=== PATIENT | male | born 1965 | race Caucasian/White ===

== ENCOUNTER → 2019-10-25 08:15 | Outpatient (CLI) | payer OTHER, SELFPAY ==
[2019-10-25 08:12] VITALS: BMI 27.3
--- NOTE | 2019-10-25 08:16 | RAD_ITS ---
STUDY: X-RAY - LEFT WRIST REASON FOR EXAM: Male, 54 years old. INJURY WITH AN ANIMAL. PAIN RADIAL SIDE OF WRIST TECHNIQUE: 4 view(s) of the wrist were obtained including the scaphoid view. COMPARISON: None. FINDINGS: Normal visualized distal radius and ulna. Normal radiocarpal articulation. Normal distal radioulnar articulation. Normal carpal bones. Normal carpal articulations. Normal carpometacarpal articulation of the thumb. Normal second through fifth carpometacarpal articulations. Normal visualized metacarpal bones. The soft tissue structures are unremarkable. RAD/Wrist min 3 Views IMPRESSION: Normal x-ray examination of the wrist. Electronically Signed: Prem Shaw, at 9:00 EDT , Service support ,
== END ==
PROVIDERS: PCP Family Medicine; Referring Provider Orthopaedic Surgery; Visit Provider Orthopaedic Surgery
DX: S69.92XA Unspecified injury of left wrist, hand and finger(s), initial encounter (principal)
CPT/HCPCS: 73110

== ENCOUNTER → 2020-09-26 16:14 | Outpatient (CLI) | payer OTHER, SELFPAY ==
--- NOTE | 2020-09-26 16:17 | RAD_ITS ---
STUDY: X-RAY CHEST REASON FOR EXAM: Male, 55 years old. SOB TECHNIQUE: PA and lateral views of the chest. COMPARISON: None. FINDINGS: The lungs are clear and expanded. There is no demonstrated pleural abnormality. Normal size heart. Normal mediastinum and fabricio. Normal visualized pulmonary arteries. Normal visualized aortic arch and descending thoracic aorta. Normal visualized thoracic spine. Normal visualized ribs, clavicles, and shoulders. There is no demonstrated abnormality of the visualized soft tissue structures of the upper abdomen. RAD/Chest PA and Lateral IMPRESSION: Normal x-ray examination of the chest. Electronically Signed: Thai Carroll MD at 16:37 EDT Tel , Service support ,
== END ==
PROVIDERS: PCP Family Medicine; Referring Provider Physician Assistant Surgical; Visit Provider Physician Assistant Surgical
DX: J20.9 Acute bronchitis, unspecified (principal)
CPT/HCPCS: 71046

== ENCOUNTER → 2021-02-26 | Outpatient (CLI) | payer OTHER, SELFPAY | END | disposition home or self-care (01) | PROVIDERS: PCP Family Medicine; Referring Provider Physician Assistant Surgical; Visit Provider Physician Assistant Surgical | DX: Z11.52 Encounter for screening for COVID-19 (principal) | CPT/HCPCS: 87635; U0005; U0003 ==

== ENCOUNTER → 2021-06-06 | Outpatient (CLI) | payer OTHER, SELFPAY ==
[2021-06-06 18:02] LABS: Mucous, Urine 0 SEEN /hpf (<or=2+); Squamous Epithelial Cells - UA 0 SEEN /hpf (0-5)
[2021-06-06 18:10] LABS: Color, Urine Amber (Yellow); Glucose, Dipstick Normal (Normal); Ketone-Dipstick 5 mg/dl (Negative); Leukocyte Esterase-Dipstick 500 /ul (Negative); Nitrite-Dipstick Positive (Negative); Occult Blood-Urine 250 /ul (Negative); Protein-Dipstick 100 mg/dl (Negative); Specific Gravity, Urine 1.015 (1.002-1.030); Urine Clarity Sl. Cloudy (Clear); Urine Urobilinogen 1 mg/dl (Normal)
[2021-06-06 18:13] LABS: Urine Bilirubin Dipstick 1 mg/dL (Negative)
[2021-06-06 18:18] LABS: White Blood Cells >100 SEEN /hpf (0-5)
[2021-06-06 18:19] LABS: Bacteria RARE /hpf (None Seen); Red Blood Cells-Urine 25-50 SEEN /hpf (0-5)
== END | disposition home or self-care (01) ==
LOC: LABSPEC 18:02
PROVIDERS: PCP Family Medicine; Visit Provider Physician Assistant
DX: R30.9 Painful micturition, unspecified (principal)
CPT/HCPCS: 81001; 87086; 87088; 87186

== ENCOUNTER → 2021-06-18 14:44 | Outpatient (CLI) | payer OTHER, SELFPAY ==
--- NOTE | 2021-06-18 14:47 | US_ITS ---
STUDY: RENAL ULTRASOUND - COMPLETE REASON FOR EXAM: Male, 56 years old. UTI TECHNIQUE: Ultrasound evaluation of the kidneys was performed with real-time and static gray-scale imaging. COMPARISON: None. FINDINGS: RIGHT KIDNEY: Normal location of the right kidney, which is normal in size. There is a normal cortex of the right kidneytThere is no right renal mass or cyst. There are no right renal calculi. There is no right hydronephrosis. DISTAL RIGHT URETER: There is non-visualization of the distal right ureter. There is no demonstrated right ureterovesical junction calculus. There is a visualized right ureteral jet. LEFT KIDNEY: Normal location of the left kidney, which is normal in size. There is a normal cortex of the left kidney.. There is no left renal mass or cyst. There are no left renal calculi. There is no left hydronephrosis. DISTAL LEFT URETER: There is non-visualization of the distal left ureter. There is no demonstrated left ureterovesical junction calculus. There is a visualized left ureteral jet. BLADDER: The distended urinary bladder has a volume of 245 ml. The empty urinary bladder has a volume of 45 ml. There is a normal wall thickness of the distended urinary bladder. There is no demonstrated mass within the urinary bladder. There are no demonstrated bladder calculi. US/Kidney and Bladder IMPRESSION: Normal ultrasound of the kidneys and urinary bladder. Electronically Signed: Adrian Maciel MD (Brooks) at 15:48 EST , Service support ,
== END ==
PROVIDERS: Visit Provider Urology
DX: N39.0 Urinary tract infection, site not specified (principal)
CPT/HCPCS: 76770

== ENCOUNTER 2023-06-28 05:55 | Observation (INO) | payer OTHER, SELFPAY ==
--- NOTE | 2023-06-27 | APP_PTH ---
PATHOLOGY RESULTS PATIENT: SUSAN CHANG LOC: MS3 U#:[id number] AGE/SX: 58/M ROOM: IN315 RE06/28/[address]: Dr. Nenita Sheppard MD : 1965 BED: 1 DIS: 06/28/2023 SPEC #: [id number] RECD: 06/30/23 08:14 STATUS: TERI MARIANNA #: [id number] SIVA: 06/27/23 00:[address]: Nenita Sheppard DEPT: SURGICAL PATHOLOGY RECD BY: Apolonia Marrero ENTERED: 06/30/23 08:14 SP TYPE: APPENDIX OTHR DR: No Primary Care Phys Tissues: Appendix, NOS Procedures: Surgery Specimen Level III HEADER OPERATION: Laparoscopic appendectomy PRE-OP DIAGNOSIS: Acute appendicitis TISSUE SUBMITTED: Appendix MICROSCOPIC DIAGNOSIS Appendix, appendectomy: Acute appendicitis and periappendicitis. YULY:omar 07/01/2023 MICROSCOPIC DESCRIPTION Slides are reviewed. GROSS DESCRIPTION Received in fixative is one container labeled with the patient's name and designated appendix. The specimen consists of an appendix measuring 9.0 cm in length and up to 1.5 cm in diameter. The attached periappendiceal adipose tissue measures up to 2.0 cm in width. The serosa is congested. No obvious perforation is identified. The lumen is dilated and filled with fecal material. No fecalith is identified. Special Education Superintendent sections are submitted in two cassettes. / SJ:omar 06/30/2023 TC:2 CPT: 60638
[2023-06-28] VITALS (14 sets, daily range): BP systolic 115–150; BP diastolic 66–102; PULSE 66–110; RESP 16–18; TEMP 36.1–36.9; O2SAT 81–100; BMI 31.9
--- NOTE | 2023-06-28 06:20 | CT_ITS ---
INDICATION: abd pain EXAMINATION: CT Abdomen And Pelvis W/ Contrast Injection TECHNIQUE: Helically acquired images were obtained of the abdomen and pelvis with sagittal and coronal reconstructed images. Individualized dose optimization techniques were used for this CT. IV contrast dosage and agent: 100 mL of Isovue-370. Oral contrast: None. COMPARISON: None. FINDINGS: VESSELS: No abdominal aortic aneurysm or dissection. LIVER: No evidence of a mass. No intrahepatic or extrahepatic biliary duct dilation. GALLBLADDER: No calcified stones. No evidence of cholecystitis. PANCREAS: No focal solid or cystic mass. No evidence of pancreatitis. SPLEEN: Normal. ADRENAL GLANDS: Normal. KIDNEYS AND URETERS: No urinary tract stone. No hydronephrosis or hydroureter. No significant asymmetric perinephric stranding. URINARY BLADDER: Unremarkable. BOWEL: Diverticulosis with no evidence of diverticulitis. The appendix is dilated and fluid-filled measuring 1.4 cm in diameter with mild periappendiceal fat stranding. There are proximal and distal appendicoliths. No evidence of perforation. No evidence of bowel obstruction. REPRODUCTIVE ORGANS: No evidence of a pelvic mass. PERITONEUM: No intraabdominal free fluid or free air. LYMPH NODES: No pathologically enlarged mesenteric or retroperitoneal lymph nodes. ABDOMINAL WALL: Small fat-containing umbilical hernia. BONES: No acute abnormality. LOWER CHEST: Visualized lung bases are unremarkable. CT/Abdomen/Pelvis W IV Cont ONLY IMPRESSION: Acute appendicitis. Electronically Signed: Chacho Henao DO at 7:44 EST ,
[2023-06-28] MEDS: Ondansetron 4 MG/2 ML Vial IV (06:25)
[2023-06-28] MEDS: Morphine 4 MG/ML Syringe IV (06:26)
[2023-06-28 06:30] LABS: Absolute Lymphocyte Count 1.06 X10^3/uL (0.83-4.51); Absolute Neutrophil Count 8.8 X10^3/uL (2.0-7.7); Basophil# 0.03 X10^3/uL; Basophil% 0.3 % (0-1); Eosinophil# 0.02 X10^3/uL; Eosinophils% 0.2 % (0-5); Hematocrit 43.5 % (40-54); Hemoglobin 15.6 g/dL (13.0-16.5); Lymphocyte # 1.06 X10^3/ul (0.83-4.51); Lymphocyte % 10.2 % (19-41); Mean Corp Hgb Conc 35.9 g/dL (32-36); Mean Corpuscular Hgb 30.5 pg (27.0-32.0); Mean Platelet Vol. 8.7 fl (6.2-12.0); Monocyte# 0.48 X10^3/uL; Monocyte% 4.6 % (0-10); NRBC Flagged by Analyzer 0 % (0-5); Neutrophil # 8.77 X10^3/uL (2.7-7.7); Neutrophil % 84.2 % (47-70); Platelet Count 383 K/mm3 (150-450); RBC Distribution Width CV 12.1 % (11.6-14.6); RBC Distribution Width SD 37.3 fl (35.1-43.9); Red Blood Count 5.12 M/mm3 (4.6-6.2); White Blood Count 10.4 K/mm3 (4.4-11.0)
[2023-06-28] MEDS: HYDROmorphone 1 MG/ML Syringe IV (06:43)
[2023-06-28] MEDS: Ketorolac 30 MG/ML Syringe IV (06:43)
[2023-06-28 06:47] LABS: ALB/GLOB Ratio 1.2 RATIO (0.9-2.4); AST(SGOT) 27 U/L (15-37); Alanine Aminotransfer ALT/SGPT 36 U/L (16-61); Albumin, Serum 4.3 g/dL (3.2-5.0); Alkaline Phosphatase 65 U/L (45-117); Anion Gap 9 (5-15); BUN 28 mg/dL (7-18); BUN/Creat Ratio 19.9 RATIO (10-20); Calcium,Total 10.1 mg/dL (8.5-10.1); Chloride 102 mmol/L (98-107); Creatinine, Serum 1.41 mg/dL (0.70-1.30); EST Glomerular Filtration Rate 55 mL/min (>60); Est Glom Filt Rate - Afr Amer 67 mL/min (>60); Estimated Creatinine Clearance 55.92 ml/min; Globulin 3.6 g/dL (2.2-4.2); Glucose 168 mg/dL (74-106); Potassium 4.3 mmol/L (3.5-5.1); Protein, Total 7.9 g/dL (6.4-8.2); Sodium Level 135 mmol/L (136-145)
[2023-06-28] MEDS: 0.9% Normal Saline (1000mL) 1,000 ML 999 ML IV (06:49)
[2023-06-28 07:07] LABS: Lipase 45 U/L (13-75)
--- OUTSIDE RECORDS SUMMARY | 2023-06-28 07:09 | XMS RPT_ITS | CCD ---
Author Name Unknown Address [address] [place] [address] Organization [facility] Care Team Providers Care Core Driller Helper Name Role Phone Linda Palmer Unavailable Unavailable Linda Palmer Unavailable Unavailable Medications Completed/Discontinued Medications Medication Drug Class(es) Dates Sig (Normalized) Sig (Original) azithromycin 250 mg oral tablet (2 sources) Macrolide Antimicrobial Start: 01-01-2017 ZITHROMAX Z-ALEXANDRA 250 MG TABS Per package instructions AZITHROMYCIN [id number] Dutch HERRERA Problems Problem Classification Problem Date Documented Da te Episodic/Chronic Other connective tissue disease (3 sources) Unspecified disorder of synovium, tendon, and bursa; Translations: [Lateral epicondylitis, unspecified elbow] Onset: 07-04-2014 07-06-2014 Episodic Other connective tissue disease (1 source) Lateral epicondylitis, unspecified elbow; Translations: [Lateral epicondylitis, unspecified elbow] Onset: 07-04-2014 07-06-2014 Episodic Other non-traumatic joint disorders (5 sources) Pain in elbow; Translations: [Hip pain] Onset: 06-28-2013 01-11-2015 Episodic Other non-traumatic joint disorders (1 source) Hip pain; Translations: [Pain in left hip] Onset: 06-28-2013 06-28-2013 Episodic Other upper respiratory infections (2 sources) Acute sinusitis; Translations: [Acute sinusitis, unspecified] Onset: 01-01-2017 01-01-2017 Episodic Sprains and strains (2 sources) Strain of muscle of lower limb; Translations: [Strain of muscle, fascia and tendon of left hip] Onset: 06-28-2013 06-28-2013 Episodic Results Test Name Value Interpretation Reference Range Facil ity Vital Signs Date Time Vital Sign Value Performing Clinician Facility 01-01-2017 08:34-0400 BMI (Body Mass Index) 30.54 kg/m2 [facility] 01-01-2017 08:34-0400 Body Temperature 98.4 [degF] [facility] 01-01-2017 08:34-0400 BP Diastolic 62 mm[Hg] [facility] 01-01-2017 08:34-0400 BP Systolic 132 mm[Hg] [facility] 01-01-2017 08:34-0400 Height 175.26 cm [facility] 01-01-2017 08:34-0400 Pulse (Heart Rate) 62 /min [facility] 01-01-2017 08:34-0400 Respiratory Rate 16 /min [facility] 01-01-2017 08:34-0400 Weight 93.8 kg [facility] r[facility] Medicine Procedures Date Procedure Procedure Detail Performing Clinician Start: 07-04-2014 End: 07-06-2014 Drain/inject, joint/bursa Shon Landaverde Work Phone: Plan of Treatment Date Care Activity Detail Author Start: 01-01-2017 End: 01-01-2017 Appointment Appointment [facility] Start: 01-11-2015 End: 01-19-2015 Drain/inject, joint/bursa Arthrocentesis, aspiration/injection; intermediate joint wrist, elbow ankle [facility] Start: 01-11-2015 End: 01-19-2015 Office/outpatient visit, est, level 4 [id number] Ofc Vst, Est Level IV [facility] Start: 01-11-2015 End: 01-11-2015 X-ray exam of elbow X-Ray, Elbow [facility] Start: 07-04-2014 End: 07-04-2014 X-ray exam of elbow X-Ray, Elbow [facility] Patient Education SINUSITIS [facility] Additional Source Comments FOR RECORDS PERTAINING TO PATIENTS WHO ARE OR HAVE BEEN ENROLLED IN A CHEMICAL DEPENDENCY/SUBSTANCEABUSE PROGRAM, SOME INFORMATION MAY BE OMITTED. This clinical summary was aggregated from multiple sources. Caution should be exercised in using it in the provision of clinical care. This summary normalizes information from multiple sources, and as a consequence, information in this document may materially change the coding, format and clinical context of patient data. In addition, data may be omitted in some cases. CLINICAL DECISIONS SHOULD BE BASED ON THE PRIMARY CLINICAL RECORDS. [facility] [employer] [facility]. provides no warranty or guarantee of the accuracy or completeness of information in this document.
--- NOTE | 2023-06-28 08:00 | EX.ED.DYSGE1 ---
HPI History of Present Illness Chief Complaint: Abd Pain Informant: patient and spouse/S.O. Narrative Narrative: Patient is a 58-year-old male with no significant past medical history. He states that after getting done with work yesterday that he noticed some vague abdominal discomfort. He states that it slightly worsened after returning home from a game but he was able to eat and go to bed. He states he woke around 1 in the morning with generalized lower abdominal pain and bouts of vomiting. He states that the pain has been persistent and slowly growing in severity ever since that time and therefore he comes in for evaluation [facility] Medical History Urinary tract infection with hematuria Allergy/AdvReac Type Severity Reaction Status Date / Time Penicillins Allergy Severe unknown Verified 06/28/23 05:57 Surgical History (Updated 06/28/23 @ 06:29 by Anderson Joseph) History of carpal tunnel surgery History of hernia repair Social History Smoking Status: Never smoker alcohol intake: current alcohol intake frequency: a few times a week Alcohol type: hard liquor ROS ROS ED Constitutional Constitutional ED: Denies chills or fever(s) ENT ENT ED: Denies sore throat Cardiovascular Cardiovascular: Denies chest pain Respiratory/Chest Respiratory/Chest: Denies cough or dyspnea Gastrointestinal Gastrointestinal: Reports abdominal pain, nausea and vomiting; Denies diarrhea Genitourinary Genitourinary ED: Denies dysuria Musculoskeletal Musculoskeletal: Denies back pain or myalgias Integumentary Denies rash Neurologic Neurologic: Denies headache(s) Hematologic/Lymphatic Hematologic/Lymphatic: Denies easy bleeding or easy bruising EXAM Physical Exam Const Vital Signs: 06/28/23 05:57 06/28/23 06:25 06/28/23 07:24 Temperature 97 F L Temperature Source Temporal Pulse Rate 110 H Respiratory Rate 17 Blood Pressure 115/102 H Blood Pressure Mean 106 Pulse Ox 98 81 Oxygen Delivery Method Room Air Room Air Oxygen Flow Rate (L/min) 06/28/23 07:25 06/28/23 07:27 Temperature Temperature Source Pulse Rate Respiratory Rate Blood Pressure Blood Pressure Mean Pulse Ox 100 Oxygen Delivery Method Nasal Cannula Nasal Cannula Oxygen Flow Rate (L/min) 3 3 Positive well nourished and well developed General Appearance ED: well developed; Negative for pallor HEENT Reports moist mucous membranes HEENT Narrative: No signs of infection noted in the posterior pharynx Eyes PERRL and EOMs intact bilaterally General Eye ED: Negative for scleral icterus Neck supple Neck Narrative: No nuchal rigidity or meningeal signs Resp normal respiratory effort and clear to auscultation bilaterally Cardio regular rhythm Rate: tachycardic and other Other Details: Tachycardic rate with regular rhythm No murmurs rubs or gallops Radial and carotid pulses are equal and symmetric GI non-distended GI Narrative: Abdomen is nondistended with normal active bowel sounds There is pain with palpation across the lower abdomen diffusely but this seems to be greatest in the suprapubic and left lower quadrant with voluntary guarding Auscultation: normoactive bowel sounds Back/Spine no CVA tenderness Extremity normal to inspection Neuro oriented x3, CN's II-XII intact bilaterally and no sensory deficits noted Sensorium / Orientation: alert Motor Exam: strength 5/5 throughout Psych mental status grossly normal Skin no rashes or lesions noted General Skin Exam: Negative for jaundice or pallor MDM MDM MDM Narrative Medical decision making narrative: Patient presented to the ER hypertensive and tachycardic but is in a great amount of pain and this is most likely a physiologic response. He reported generalized abdominal discomfort worsening throughout the evening and is having bouts of nausea and vomiting. Differential diagnosis is for kidney stone versus acute appendicitis versus biliary colic versus pancreatitis versus bowel obstruction as he does have a history of inguinal hernia surgery. Basic labs were obtained which revealed no clinically significant findings. CT scan showed a dilated and inflamed appendix without perforation with appendicaliths. He does have a penicillin allergy so therefore he was started on Cipro and Flagyl. General surgery was contacted and they will accept the patient and plan on taking with surgery later today. Secondary to this a chest x-ray and EKG were obtained. Plan of care was cussed with patient and and they are both agreeable to it. Therefore patient be admitted to the general surgery service for planed appendectomy later today History & Record Review Discussion w/independent historian: Patient and Significant other Lab Data Attestation: I reviewed the patient's lab results. Labs: Laboratory Results - last 24 hr 06/28/23 06/28/23 06:11 06:27 WBC 10.4 RBC 5.12 Hgb 15.6 Hct 43.5 MCV 85.0 MCH 30.5 MCHC 35.9 RDW Std Deviation 37.3 RDW Coeff of Michelle 12.1 Plt Count 383 MPV 8.7 Immature Gran % (Auto) 0.500 Neut % (Auto) 84.2 H Lymph % (Auto) 10.2 L Florence % (Auto) 4.6 Eos % (Auto) 0.2 Baso % (Auto) 0.3 Absolute Neuts (auto) 8.8 H Absolute Lymphs (auto) 1.06 Nucleated RBC % 0 Sodium 135 L Potassium 4.3 Chloride 102 Carbon Dioxide 24.0 Anion Gap 9 BUN 28 H Creatinine 1.41 H Estim Creat Clear Calc 55.92 Est GFR (MDRD) Af Amer 67 Est GFR (MDRD) Non-Af 55 L BUN/Creatinine Ratio 19.9 Glucose 168 H Calcium 10.1 Total Bilirubin 0.60 AST 27 ALT 36 Alkaline Phosphatase 65 Total Protein 7.9 Albumin 4.3 Globulin 3.6 Albumin/Globulin Ratio 1.2 Lipase 45 Radiography Diagnostic Testing: Clinical Impression(s) from Imaging Studies Abdomen/Pelvis CT 06/28/23 06:20 IMPRESSION: Acute appendicitis. Electronically Signed: Chacho Henao DO at 7:44 EST , 1 view chest x-ray as interpreted by the emergency medicine physician reveals no acute infiltrate pneumothorax or pleural effusion Discharge Plan Dx/Rx/DC Orders Clinical Impression: Acute appendicitis Disposition Disposition: [facility]
--- NOTE | 2023-06-28 08:03 | EKG12_ITS ---
Test Reason : ABD PAIN Blood Pressure : / mmHG Vent. Rate : 070 BPM Atrial Rate : 070 BPM P-R Int : 200 ms QRS Dur : 100 ms QT Int : 398 ms P-R-T Axes : 058 015 026 degrees QTc Int : 429 ms Normal sinus rhythm Normal ECG Confirmed by KATIE ANGUIANO, DANIEL ([id number]), subeditor AALIYAH MORALES ([id number]) on 06/30/2023 8:38:27 AM Referred By: Confirmed By:DANIEL WILSON MD
--- NOTE | 2023-06-28 08:10 | RAD_ITS ---
STUDY: X-RAY CHEST REASON FOR EXAM: Male, 58 years old. Preop clearance TECHNIQUE: Single AP portable view of the chest. COMPARISON: September 26, 2020 FINDINGS: The lungs are clear and expanded. There is no demonstrated pleural abnormality. Normal size heart. Normal mediastinum and fabricio. Normal visualized pulmonary arteries. Normal visualized aortic arch and descending thoracic aorta. There are diffuse degenerative changes of the visualized thoracic spine. Normal visualized ribs, clavicles, and shoulders. There is no demonstrated abnormality of the visualized soft tissue structures of the upper abdomen. RAD/Chest 1 View (Portable) IMPRESSION: Degenerative changes, as described above. No demonstrated acute cardiopulmonary process. Electronically Signed: Miguel Silva MD at 9:04 [facility] ,
--- OUTSIDE RECORDS SUMMARY | 2023-06-28 08:15 | XMS RPT_ITS | CCD ---
Author Name Unknown Address [address] [place] [address] Organization [facility] Care Team Providers Care Manager Supply Name Role Phone Linda Palmer Unavailable Unavailable Linda Palmer Unavailable Unavailable Medications Completed/Discontinued Medications Medication Drug Class(es) Dates Sig (Normalized) Sig (Original) azithromycin 250 mg oral tablet (2 sources) Macrolide Antimicrobial Start: 01-01-2017 ZITHROMAX Z-ALEXANDRA 250 MG TABS Per package instructions AZITHROMYCIN [id number] Dutch HERRERA Problems Problem Classification Problem Date [...] 08:34-0400 BMI (Body Mass Index) 30.54 kg/m2 [facility] 01-01-2017 08:34-0400 Body Temperature 98.4 [degF] [facility] 01-01-2017 08:34-0400 BP Diastolic 62 mm[Hg] [facility] 01-01-2017 08:34-0400 BP Systolic 132 mm[Hg] [facility] 01-01-2017 08:34-0400 Height 175.26 cm [facility] 01-01-2017 08:34-0400 Pulse (Heart Rate) 62 /min [facility]ternal Medicine 01-01-2017 08:34-0400 Respiratory Rate 16 /min [facility] 01-01-2017 08:34-0400 Weight 93.8 kg [facility] rnal Medicine Procedures Date Procedure Procedure Detail Performing Clinician Start: 07-04-2014 End: 07-06-2014 Drain/inject, joint/bursa Shon Landaverde Work Phone: Plan of Treatment Date Care Activity Detail Author Start: 01-01-2017 End: 01-01-2017 Appointment Appointment [facility] Start: 01-11-2015 End: 01-19-2015 Drain/inject, joint/bursa Arthrocentesis, aspiration/injection; intermediate joint wrist, elbow ankle [facility] Start: 01-11-2015 End: 01-19-2015 Office/outpatient visit, est, level 4 [id number] Ofc Vst, Est Level IV [facility] Start: 01-11-2015 End: 01-11-2015 X-ray exam of elbow X-Ray, Elbow [facility] Start: 07-04-2014 End: 07-04-2014 X-ray exam of elbow X-Ray, Elbow [facility] Patient Education SINUSITIS [facility] Additional Source Comments FOR RECORDS [...] BE BASED ON THE PRIMARY CLINICAL RECORDS. [facility] [employer] [facility]. provides no warranty or guarantee of the accuracy or completeness of information in this document.
--- NOTE | 2023-06-28 08:29 | NURSING ---
OR [facility] OBS ACUTE APPENDICITIS
[2023-06-28] MEDS: Ciprofloxacin 400 MG/200 ML BAG 200 MG IV (08:38)
[2023-06-28] MEDS: HYDROmorphone 0.5 MG/0.5 ML SYRINGE IV (08:41)
[2023-06-28 08:49] LABS: Bacteria 0 SEEN /hpf (None Seen); Mucous, Urine 0 SEEN /hpf (<or=2+); Red Blood Cells-Urine 0 SEEN /hpf (0-5); Squamous Epithelial Cells - UA 0 SEEN /hpf (0-5); White Blood Cells 0 SEEN /hpf (0-5)
[2023-06-28 09:00] LABS: Color, Urine Yellow (Yellow); Glucose, Dipstick Normal (Normal); Ketone-Dipstick 15 mg/dl (Negative); Leukocyte Esterase-Dipstick Negative /ul (Negative); Nitrite-Dipstick Negative (Negative); Occult Blood-Urine Negative /ul (Negative); Protein-Dipstick 15 mg/dl (Negative); Specific Gravity, Urine 1.015 (1.002-1.030); Urine Bilirubin Dipstick Negative (Negative); Urine Clarity Clear (Clear); Urine Urobilinogen Normal (Normal)
[2023-06-28] MEDS: metroNIDAZOLE 500 MG/100 ML BAG 100 MG IV (09:57)
[2023-06-28] MEDS: Lactated Ringers 1,000 ML 15 ML IV (10:04)
--- NOTE | 2023-06-28 10:04 | PCM.HP.STD ---
HPI - General General Date of Admission: 06/28/23 HPI Narrative SUSAN CHANG, is a 58 M who presents the ER due to abdominal pain nausea and vomiting. Patient was found to have acute appendectomy on CT. Patient states the pain got worse at 1 AM this morning had minimal pain yesterday. Patient states at 1 AM the pain was diffuse in his abdomen. Patient patient white blood count of 10.4 with a left shift. Patient was given IV as Cipro and Flagyl in the ER for acute appendicitis. Patient's only surgery is open right inguinal hernia. patient takes no daily medication. [facility] Medical History Urinary tract infection with hematuria Allergy/AdvReac Type Severity Reaction Status Date / Time Penicillins Allergy Severe unknown Verified 06/28/23 05:57 Surgical History (Updated 06/28/23 @ 06:29 by Anderson Joseph) History of carpal tunnel surgery History of hernia repair Social History Smoking Status: Never smoker alcohol intake: current alcohol intake frequency: a few times a week Alcohol type: hard liquor Vital Signs Vital Signs Vital Signs: 06/28/23 05:57 06/28/23 06:25 06/28/23 07:24 Temperature 97 F L Temperature Source Temporal Pulse Rate 110 H Respiratory Rate 17 Blood Pressure 115/102 H Blood Pressure Mean 106 Pulse Ox 98 81 Oxygen Delivery Method Room Air Room Air Oxygen Flow Rate (L/min) 06/28/23 07:25 06/28/23 07:27 06/28/23 08:55 Temperature 97.9 F Temperature Source Oral Pulse Rate 72 Respiratory Rate 16 Blood Pressure 145/87 H Blood Pressure Mean 106 Pulse Ox 100 99 Oxygen Delivery Method Nasal Cannula Nasal Cannula Room Air Oxygen Flow Rate (L/min) 3 3 06/28/23 09:39 Temperature 97.9 F Temperature Source Pulse Rate 72 Respiratory Rate 16 Blood Pressure 145/87 H Blood Pressure Mean 106 Pulse Ox 99 Oxygen Delivery Method Oxygen Flow Rate (L/min) Weight Weight: 210 lb Body Mass Index (BMI) 31.9 Physical Exam Const alert, oriented x3 and no apparent distress HEENT normocephalic and head/scalp atraumatic Resp normal respiratory effort Cardio regular rate GI soft to palpation; Negative for non-distended Palpation: tender RLQ; Negative for guarding Extremity no clubbing, cyanosis or edema Neuro CN's II-XII intact bilaterally Psych mental status grossly normal Results Lab / Micro Data 06/28/23 06:11 06/28/23 06:11 Labs: Laboratory Results - last 24 hr 06/28/23 06:11: WBC 10.4, RBC 5.12, Hgb 15.6, Hct 43.5, MCV 85.0, MCH 30.5, MCHC 35.9, RDW Std Deviation 37.3, RDW Coeff of Michelle 12.1, Plt Count 383, MPV 8.7, Immature Gran % (Auto) 0.500, Neut % (Auto) 84.2 H, Lymph % (Auto) 10.2 L, [place] % (Auto) 4.6, Eos % (Auto) 0.2, Baso % (Auto) 0.3, Absolute Neuts (auto) 8.8 H, Absolute Lymphs (auto) 1.06, Nucleated RBC % 0, Sodium 135 L, Potassium 4.3, Chloride 102, Carbon Dioxide 24.0, Anion Gap 9, BUN 28 H, Creatinine 1.41 H, Estim Creat Clear Calc 55.92, Est GFR (MDRD) Af Amer 67, Est GFR (MDRD) Non-Af 55 L, BUN/Creatinine Ratio 19.9, Glucose 168 H, Calcium 10.1, Total Bilirubin 0.60, AST 27, ALT 36, Alkaline Phosphatase 65, Total Protein 7.9, Albumin 4.3, Globulin 3.6, Albumin/Globulin Ratio 1.2 06/28/23 06:27: Lipase 45 06/28/23 08:43: Urine Color Yellow, Urine Clarity Clear, Urine pH 7.0, Ur Specific [place] 1.015, Urine Protein 15 H, Urine Glucose (UA) Normal, Urine Ketones 15 H, Urine Occult Blood Negative, Urine Nitrite Negative, Urine Bilirubin Negative, Urine Urobilinogen Normal, Ur Leukocyte Esterase Negative, Urine RBC 0 SEEN, Urine WBC 0 SEEN, Ur Squamous Epith Cells 0 SEEN, Urine Bacteria 0 SEEN, Urine Mucus 0 SEEN Imagaing Radiology Impression Abdomen/Pelvis CT 06/28/23 06:20 IMPRESSION: Acute appendicitis. Electronically Signed: Chacho Henao DO at 7:44 EST , Chest X-Ray 06/28/23 08:10 IMPRESSION: Degenerative changes, as described above. No demonstrated acute cardiopulmonary process. Electronically Signed: Miguel Silva MD at 9:04 EST , Assessment & Plan Assessment/Plan (1) Acute appendicitis: PLAN: Plan 1. Discussed procedure laparoscopic appendectomy, possible open along with the risk but not limited to bleeding, infection/abscess, injury to another organ (small bowel, colon, etc.), adhesion, hernia at incision sites, and anesthesia. Patient and his have no further questions at this time. Nenita Sheppard M.D. Pager: [phone] [facility] [address] [place] [address], [address] [place] [address] Office: [phone]
[2023-06-28] MEDS: Bupivacaine 0.5% PF 10 ML VIAL (11:35)
--- NOTE | 2023-06-28 11:37 | PCM.OPRPT ---
Report of Operation Date of Procedure: 06/28/23 Pre-Operative Diagnosis: Acute appendicitis Post-Operative Diagnosis: Same Surgery/Procedure Performed:: Laparoscopic appendectomy Surgeon: Nenita Sheppard Type of Anesthesia: General/Supplemental Anesthesiologist: Isaias Orr Special Medications: Cipro 400 mg IV x 1 and Flagyl 500 mg IV x 1 in the ER for acute appendicitis Specimen's removed: Appendix Estimated Blood Loss (mL): < 10 cc Description of Procedure: Indications: 58-year-old male presented to the ER with increased abdominal pain at 1 AM. On workup he was found to have acute appendicitis on CT and a white blood cell count of 10.4 with a left shift. Patient was started on antibiotics in the ER for acute appendicitis-Cipro 400 mg IV x 1, Flagyl 500 mg IV x 1 Description of the procedure: The patient was placed on operating table in supine position. General anesthesia was induced. A timeout was completed verifying correct patient, procedure, position and special equipment prior to beginning procedure. Abdomen was prepped and draped in usual sterile fashion. Incision was made in the natural skin line above the umbilicus with a 15 blade scalpel. The fascia was elevated and incised. Entry into the peritoneum was confirmed visually and no bowel was noted in the vicinity of the incision. The [place] trocar was placed under direct vision. Abdomen insufflated with a pressure of 12-15 mmHg. Patient tolerated insertion well. The scope was inserted and the abdomen inspected. No injuries from initial trocar placement were noted. Minimal amount of fluid was seen in the right lower quadrant. An direct visualization 2 -5 mm trocars were placed one above the symphysis pubis and below the hairline and one in the left lower quadrant lateral to the rectus muscle. Care is taken to avoid injury to the bladder and inferior epigastric vessels. The table was placed in Trendelenburg position with the right side elevated. The appendix was grasped with atraumatic grasper and elevated. It was noted to be inflamed/dilated. A window was developed in the mesoappendix at the point between the base of the appendix and the cecum. An endoscopic 45 mm linear cutting stapler blue load was then used to divide and staple the base of the appendix. Enseal was used to divide the mesoappendix. The appendix was withdrawn into the [place] trocar after being placed endoscopically retrieval bag. Appendix was sent to pathology. The appendiceal stump was then irrigated and hemostasis was assured. Fluid was suctioned no other pathology was identified. Secondary trochars were removed under direct visualization. No bleeding was noted trocar sites. The laparoscope withdrawn and the umbilical trocar removed. The abdomen was allowed to collapse. Local anesthesia of 30 mL of 0.5% Marcaine was used at the incision sites. The umbilical trocar site was closed with the [id number] 0 Vicryl suture. The skin was closed using sutures of 4-0 Monocryl and Steri-Strips. The patient was extubated. The patient tolerated the procedure well and was taken to the postanesthesia care unit in satisfactory condition. Complications none
--- NOTE | 2023-06-28 11:39 | DCINST_ITS ---
Discharge Instructions Diet Discharge Diet: Light diet - advance as tolerated Activity Discharge Activity: May Not Drive (while taking narcotic pain medications.) May shower in (days): 1 Lifting Restrictions: no lifting >20 lbs x 2 wks, no strenuous exercise for 4 wks Dressing / Incision Call your doctor if your incision/area has: Continuous Slow Oozing, Sudden Increased Bleeding, Increased Pain/ Swelling, Increased Redness, Foul Smelling Discharge and Swelling at the incision site Call your doctor if you observe: Fever of 101 or Higher Remove Dressing in: 2 days Cleanse incision/area with: Soap & Water Additional Dressing/Incision Instructions:: Steri-Strips will fall off in 7 to 10 days, if they do not fall off okay to remove after 10 days. Follow Up Care Please Follow Up With: Nenita Sheppard MD When: Call the office for a follow-up appointment 2 weeks; after 5 PM and on the weekends call [phone] with any concerns. Test Results: Test results from this visit will be discussed in further detail at your follow- up appointment, if applicable. Discharge Plan Admission Admit Date/Time: 06/28/23 08:13 Attending Provider: Nenita Sheppard Primary Care Provider: Marcy PhysicianHilary Primary Discharge Orders/Prescriptions Prescriptions: New tramadol 50 mg tablet 50 mg PO Q6H PRN (Reason: pain) Qty: 14 0RF Referrals / Follow Up: Care PhysicianHilary Primary [Primary Care Provider] - Disposition Disposition (needs filled in before D/C Order can be placed): Home, Self Care
[2023-06-28] MEDS: 0.9% Normal Saline (1000mL) 1,000 ML 120 ML IV (13:24)
[2023-06-28] MEDS: traMADol 50 MG Tablet PO (15:12)
--- OUTSIDE RECORDS SUMMARY | 2023-07-01 11:22 | XMS RPT_ITS | CCD ---
Author Name Unknown Address [address] [place] [address] Organization [facility] Care Team Providers Care Manufacturing Production Technician Name Role Phone Linda Palmer Unavailable Unavailable Linda Palmer Unavailable Unavailable Medications Completed/Discontinued Medications Medication Drug Class(es) Dates Sig (Normalized) Sig (Original) azithromycin 250 mg oral tablet (2 sources) Macrolide Antimicrobial Start: 01-01-2017 ZITHROMAX Z-ALEXANDRA 250 MG TABS Per package instructions AZITHROMYCIN [id number] Dutch HERRERA Problems Problem Classification Problem Date [...] 08:34-0400 BMI (Body Mass Index) 30.54 kg/m2 [facility] Internal [facility] 01-01-2017 08:34-0400 Body Temperature 98.4 [degF] [facility] 01-01-2017 08:34-0400 BP Diastolic 62 mm[Hg] [facility] 01-01-2017 08:34-0400 BP Systolic 132 mm[Hg] [facility] 01-01-2017 08:34-0400 Height 175.26 cm [facility] 01-01-2017 08:34-0400 Pulse (Heart Rate) 62 /min [facility] I nternal Medicine 01-01-2017 08:34-0400 Respiratory Rate 16 /min [facility]al Medicine 01-01-2017 08:34-0400 Weight 93.8 kg [facility] rnal Medicine Procedures Date Procedure Procedure Detail Performing Clinician Start: 07-04-2014 End: 07-06-2014 Drain/inject, joint/bursa Shon Landaverde Work Phone: Plan of Treatment Date Care Activity Detail Author Start: 01-01-2017 End: 01-01-2017 Appointment Appointment [facility] Start: 01-11-2015 End: 01-19-2015 Drain/inject, joint/bursa Arthrocentesis, aspiration/injection; intermediate joint wrist, elbow ankle [facility] Start: 01-11-2015 End: 01-19-2015 Office/outpatient visit, est, level 4 [id number] Ofc Vst, Est Level IV [facility] Start: 01-11-2015 End: 01-11-2015 X-ray exam of elbow X-Ray, Elbow [facility] Start: 07-04-2014 End: 07-04-2014 X-ray exam of elbow X-Ray, Elbow [facility] Patient Education SINUSITIS [facility] Internal Medicine Additional Source Comments FOR RECORDS [...] BE BASED ON THE PRIMARY CLINICAL RECORDS. [facility] [employer] [facility]. provides no warranty or guarantee of the accuracy or completeness of information in this document.
== END 2023-06-28 18:18 | disposition home or self-care (01) ==
LOC: ED 07:06 → MS3 08:14 → ACINP 08:56 → MS3 18:03 → ACINP 07-01 10:13
PROVIDERS: Admitting Provider Surgery; Emergency Provider Emergency Medicine; Visit Provider Surgery
PROC: 0DTJ4ZZ Resection of Appendix, Percutaneous Endoscopic Approach (ICD-10-PCS; CPT 44970; principal; 2023-06-28 10:30)
DX: K35.80 Unspecified acute appendicitis (principal)
CPT/HCPCS: 44970; 00840; 71045; 74177; 80053; 81001; 83690; 85025; 88304; 93005; 94668; 96361; 96374; 96375; 96376; 99283; J7030; J7040; J7050; J7120; Q9967; A4216; C1760; J2405

== ENCOUNTER → 2023-08-22 | Outpatient (CLI) | payer OTHER, SELFPAY ==
--- OUTSIDE RECORDS SUMMARY | 2023-08-22 18:27 | XMS RPT_ITS | CCD ---
Author Name Unknown Address [address] [place] [address] Organization [facility] Care Team Providers Care Supervisor Furnace Process Name Role Phone Linda Palmer Unavailable Unavailable Linda Palmer Unavailable Unavailable Medications Completed/Discontinued Medications Medication Drug Class(es) Dates Sig (Normalized) Sig (Original) azithromycin 250 mg oral tablet (2 sources) Macrolide Antimicrobial Start: 01-01-2017 ZITHROMAX Z-ALEXANDRA 250 MG TABS Per package instructions AZITHROMYCIN [id number] [place] HERRERA Problems Problem Classification Problem Date [...] 08:34-0400 BMI (Body Mass Index) 30.54 kg/m2 [facility] 01-01-2017 08:34-0400 Body Temperature 98.4 [degF] [facility] 01-01-2017 08:34-0400 BP Diastolic 62 mm[Hg] [facility]nal Medicine 01-01-2017 08:34-0400 BP Systolic 132 mm[Hg] [facility] 01-01-2017 08:34-0400 Height 175.26 cm [facility]nal [facility] 01-01-2017 08:34-0400 Pulse (Heart Rate) 62 /min [facility] I nternal Medicine 01-01-2017 08:34-0400 Respiratory Rate 16 /min [facility] Int ernal Medicine 01-01-2017 08:34-[address] [facility] rnal Medicine Procedures Date Procedure Procedure Detail Performing Clinician Start: 07-04-2014 End: 07-06-2014 Drain/inject, joint/bursa Shon Landaverde Work Phone: Plan of Treatment Date Care Activity Detail Author Start: 01-01-2017 End: 01-01-2017 Appointment Appointment [facility] Start: 01-11-2015 End: 01-19-2015 Drain/inject, joint/bursa Arthrocentesis, aspiration/injection; intermediate joint wrist, elbow ankle [facility] Start: 01-11-2015 End: 01-19-2015 Office/outpatient visit, est, level 4 [id number] Ofc Vst, Est Level IV [facility] Start: 01-11-2015 End: 01-11-2015 X-ray exam of elbow X-Ray, Elbow [facility] Start: 07-04-2014 End: 07-04-2014 X-ray exam of elbow X-Ray, Elbow [facility] Patient Education SINUSITIS [facility] Internal Medicine Additional Source Comments FOR [...] BE BASED ON THE PRIMARY CLINICAL RECORDS. [facility] [employer] [facility]. provides no warranty or guarantee of the accuracy or completeness of information in this document.
== END | disposition home or self-care (01) ==
PROVIDERS: Referring Provider Physician Assistant Surgical; Visit Provider Physician Assistant Surgical
DX: N39.0 Urinary tract infection, site not specified (principal)
CPT/HCPCS: 87086; 87088